=== PATIENT | male | born 1980 | race American Indian/Alaskan Native ===

== ENCOUNTER 2018-05-31 18:03 | Emergency (ER) | payer SELFPAY ==
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
[2018-05-31 21:35] VITALS: BP 132/72
== END 2018-05-31 21:32 | disposition home or self-care (01) ==
LOC: ED 18:03
DX: M79.631 Pain in right forearm (principal); I10 Essential (primary) hypertension; F17.200 Nicotine dependence, unspecified, uncomplicated; Z86.73 Personal history of transient ischemic attack (TIA), and cerebral infarction without residual deficits
CPT/HCPCS: 99282

== ENCOUNTER 2022-01-04 14:03 | Emergency (ER) | payer SELFPAY ==
[2022-01-04 14:52] VITALS: BP 161/95
== END 2022-01-04 16:30 | disposition left against medical advice (07) ==
LOC: ED 14:03
DX: K08.89 Other specified disorders of teeth and supporting structures (principal); Z53.21 Procedure and treatment not carried out due to patient leaving prior to being seen by health care provider